=== PATIENT | male | born 1980 | race African-American/Black ===

== ENCOUNTER 2017-08-08 02:52 | Emergency (ER) | payer OTHER ==
[2017-08-08 03:07] VITALS: O2SAT 100
[2017-08-08] MEDS ORDERED: Rocephin 1000 MG INJ IM ONE (03:20)
[2017-08-08] MEDS ORDERED: MOTRIN 400 MG PO ONE (03:21)
[2017-08-08] MEDS ORDERED: CLEOCIN 150 MG CAPSULE PO ONE (03:21)
[2017-08-08] MEDS ORDERED: MOTRIN 400 MG ONE (03:24)
[2017-08-08] MEDS ORDERED: CLEOCIN 150 MG CAPSULE ONE (03:24)
[2017-08-08] MEDS ORDERED: Rocephin 1000 MG INJ ONE (03:25)
[2017-08-08] MEDS ORDERED: XYLOCAINE 1% HCL 20 ML MDV ONE (03:26)
--- NOTE | 2017-08-08 03:28 | ERPHSYRPT ---
- History of Present Illness Time Seen by Provider: 08/08/17 03:15 Source: patient Exam Limitations: no limitations Patient Subjective Stated Complaint: pt states he has redness to his rt arm and hand. states he had eczema on his rt hand and tonight has redness extending up his arm. Triage Nursing Assessment: pt alert and oriented, answers questions approp. pt ambultory with steady gait noted. respirations nonlabored with lungs cta. open areas noted to rt hand with swelling surrounding. redness noted to forearm, radial pulse and sensation wnl. Physician History: ABOUT 24 HOURS AGO PT STARTED WITH PAIN IN THE LATERAL ASPECT OF THE RIGHT HAND WHICH STARTED TO SWELL TRAVELING UP THE VOLAR ASPECT OF THE FOREARM TO MID FOREARM. 5 HOURS AGO THE AREA STARTED WITH REDNESS. PT DENIES FEVER, CHILLS, NAUSEA, VOMITING, CHEST PAIN. Allergies/Adverse Reactions: No Known Drug Allergies Allergy (Verified 08/08/17 03:10) Home Medications: Gabapentin mg PO BID 08/08/17 [History] Hx Tetanus, Diphtheria Vaccination/Date Given: Yes (2014) Hx Influenza Vaccination/Date Given: No Hx Pneumococcal Vaccination/Date Given: No Immunizations Up to Date: Yes - Review of Systems Constitutional: No Fever, No Chills Cardiac: No Chest Pain Abdominal/Gastrointestinal: No Nausea Musculoskeletal: Other (SWELLING AND REDNESS OF THE LATERAL ASPECT OF THE RIGHT HAND AND DISTAL VOLAR ASPECT OF THE LEFT FOREARM) Skin: Rash All Other Systems: Reviewed and Negative - Past Medical History Pertinent Past Medical History: No Neurological History: Other Musculoskeletal History: Osteoarthritis Other Medical History: RLS - Past Surgical History Past Surgical History: Yes Gastrointestinal: Appendectomy - Social History Smoking Status: Current every day smoker How long have you smoked: 10yrs Exposure to second hand smoke: Yes Drug Use: none Patient Lives Alone: No - Nursing Vital Signs Nursing Vital Signs: Initial Vital Signs Temperature 98.0 F 08/08/17 02:55 Pulse Rate 87 08/08/17 02:55 Respiratory Rate 16 08/08/17 02:55 Blood Pressure 132/82 08/08/17 02:55 O2 Sat by Pulse Oximetry 100 08/08/17 02:55 Pain Scale Pain Intensity 1 - Physical Exam General Appearance: alert Eyes, Ears, Nose, Throat Exam: TMs normal, pharynx normal, moist mucous membranes Neck Exam: normal inspection Cardiovascular/Respiratory Exam: normal breath sounds, heart sounds normal Abdominal Exam: soft (B.S. NORMAL) Back Exam: normal range of motion Elbow/Forearm Exam: swelling (MILD EDEMA & ERYTHEMA OF THE DISTAL VOLAR ASPECT OF THE RIGHT FOREARM.) Hand Exam: swelling (MILD EDEMA & ERYTHEMA OF THE LATERAL ASPECT OF THE RIGHT HAND; FULL ROM, SENSATION AND CAPILLARY REFILL OF ALL DIGITS OF THE RIGHT HAND.) Neuro/Tendon Exam: normal sensation, normal motor functions, normal tendon functions Mental Status Exam: alert, cooperative SpO2 Interpretation: normal SpO2: 100 Oxygen Delivery: Room Air - Course Nursing assessment & vital signs reviewed: Yes Ordered Tests: Medication Summary Discontinued Medications Generic Name Dose Route Start Last Admin Trade Name Freq PRN Reason Stop Dose Admin Ceftriaxone Sodium 1,000 mg 08/08/17 03:20 Rocephin 1000 Mg Inj IM 08/08/17 03:21 STAT ONE Clindamycin HCl 300 mg 08/08/17 03:21 Cleocin 150 Mg Capsule PO 08/08/17 03:22 STAT ONE Ibuprofen 400 mg 08/08/17 03:21 Motrin 400 Mg PO 08/08/17 03:22 STAT ONE - Departure Time of Disposition: 03:42 Departure Disposition: Home Clinical Impression: MILD CELLULITIS OF THE RIGHT HAND/FOREARM Condition: Stable Critical Care Time: No Referrals: DOCTOR,NO FAMILY [Primary Care Provider] - Instructions: Cellulitis -- Adult Additional Instructions: FOLLOW UP WITH PRIVATE DOCTOR TOMORROW. ELEVATE RIGHT HAND/FOREARM ABOVE HEART LEVEL FOR 24 HOURS. Prescriptions: Naproxen [Naprosyn] 500 mg PO Q12H PRN PRN #20 tablet PRN Reason: Pain Clindamycin HCl 300 mg PO Q6H #40 capsule
[2017-08-08 03:57] VITALS: BP 127/90; PULSE 90
== END 2017-08-08 03:57 | disposition home or self-care (01) ==
LOC: ED 02:52
DX: L03.113 Cellulitis of right upper limb (principal)
CPT/HCPCS: 96372; 99284; J0696; A9270-GY

== ENCOUNTER 2019-06-10 19:39 | Emergency (ER) | payer OTHER ==
--- NOTE | 2019-06-10 22:09 | ERPHSYRPT ---
- History of Present Illness Time Seen by Provider: 06/10/19 22:02 Historian: patient Exam Limitations: no limitations Patient Subjective Stated Complaint: patient reports he has an umbilical hernia that has caused him severe pain 3 times this week. when its bad, its really bad , I get sick and pain is at least 8/10. at present time, patient denies pain. reports last Bm an 1.5 hr ago. pt states I just wanted to get it checked out to see what I need to do. Triage Nursing Assessment: A/O, speech clear, denies pain or disc at this time. noted umbilical hernia. + BS. denies N/V at this time. 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 Timing/Duration: week(s) (Off and on) Activities at Onset: none (nothing seems to cause the umbilical bulge) Quality: cramping, sharpness, stabbing Abdominal Pain Onset Location: periumbilical Pain Radiation: periumbilical Allergies/Adverse Reactions: No Known Drug Allergies Allergy (Verified 08/08/17 03:10) Hx Tetanus, Diphtheria Vaccination/Date Given: Yes Hx Influenza Vaccination/Date Given: No Hx Pneumococcal Vaccination/Date Given: No Immunizations Up to Date: Yes - Review of Systems Constitutional: No Symptoms Respiratory: No Symptoms Cardiac: No Symptoms Abdominal/Gastrointestinal: No Symptoms (at present) Skin: No Symptoms (No periumbilical erythema) All Other Systems: Reviewed and Negative - Past Medical History Pertinent Past Medical History: No Neurological History: No Pertinent History ENT History: No Pertinent History Cardiac History: No Pertinent History Respiratory History: No Pertinent History Endocrine Medical History: No Pertinent History Musculoskeletal History: Osteoarthritis GI Medical History: No Pertinent History History: No Pertinent History Psycho-Social History: No Pertinent History Male Reproductive Disorders: No Pertinent History Other Medical History: heart murmur - Past Surgical History Past Surgical History: Yes Neuro Surgical History: No Pertinent History Cardiac: No Pertinent History Respiratory: No Pertinent History Gastrointestinal: Appendectomy Genitourinary: No Pertinent History Musculoskeletal: No Pertinent History Male Surgical History: No Pertinent History - Social History Smoking Status: Current every day smoker How long have you smoked: 10yrs Exposure to second hand smoke: Yes Drug Use: none Patient Lives Alone: No - Nursing Vital Signs Nursing Vital Signs: Initial Vital Signs Temperature 98.1 F 06/10/19 20:30 Pulse Rate 83 06/10/19 20:30 Respiratory Rate 16 06/10/19 20:30 Blood Pressure 141/84 06/10/19 20:30 O2 Sat by Pulse Oximetry 99 06/10/19 20:30 Pain Scale Pain Intensity 0 - Physical Exam General Appearance: no apparent distress (Patient advised that it is not painful or present at this time but wanted to have it checked out), alert Eye Exam: PERRL/EOMI Ears, Nose, Throat Exam: normal ENT inspection Neck Exam: normal inspection Respiratory Exam: normal breath sounds, lungs clear, airway intact, No chest tenderness Cardiovascular Exam: regular rate/rhythm, normal heart sounds Gastrointestinal/Abdomen Exam: soft, normal bowel sounds, No tenderness, No ecchymosis, No pulsatile mass, No rebound, No hernia (not demonstrated with stress exam) Extremity Exam: normal inspection, normal range of motion Neurologic Exam: alert, oriented x 3, cooperative, normal mood/affect - Course Nursing assessment & vital signs reviewed: Yes - CT Exams Abdomen CT Interpretation: Negative (No cute process noted; no umbilical hernia demonstrated) Ordered Tests: Active Orders 24 hr Category Date Time Status ABDOMEN WITHOUT CONTRAST [CT] Stat Exams 06/10/19 23:08 Taken CBC W DIFF Stat Lab 06/10/19 22:35 Completed CMP Stat Lab 06/10/19 22:35 Completed Lab/Rad Data: Laboratory Result Diagrams 06/10/19 22:35 06/10/19 22:35 Laboratory Results 06/10/19 06/10/19 Range/Units 22:35 22:35 WBC 7.8 (4.0-10.5) K/mm3 RBC 5.28 (4.1-5.6) M/mm3 Hgb 12.6 (12.5-18.0) gm/dl Hct 38.0 L (42-50) % MCV 72.0 L (78-100) fl MCH 23.9 L (26-32) pg MCHC 33.2 (32-36) g/dl RDW 16.0 H (11.5-14.0) % Plt Count 268 (150-450) K/mm3 MPV 10.5 H (6-9.5) fl Gran % 36.5 (36.0-66.0) % Eos # (Auto) 0.39 (0-0.5) Absolute Lymphs (auto) 3.78 (1.0-4.6) Absolute Monos (auto) 0.76 (0.0-1.3) Lymphocytes % 48.2 H (24.0-44.0) % Monocytes % 9.7 (0.0-12.0) % Eosinophils % 5.0 (0.00-5.0) % Basophils % 0.6 (0.0-0.4) % Absolute Granulocytes 2.86 (1.4-6.9) Basophils # 0.05 (0-0.4) Sodium 143 (137-145) mmol/L Potassium 4.0 (3.5-5.1) mmol/L Chloride 110 H (98-107) mmol/L Carbon Dioxide 27 (22-30) mmol/L Anion Gap 9.7 (5-15) MEQ/L BUN 19 (9-20) mg/dL Creatinine 1.04 (0.66-1.25) mg/dL Estimated GFR > 60.0 ML/MIN Glucose 90 (74-106) mg/dL Calcium 9.2 (8.4-10.2) mg/dL Total Bilirubin 0.30 (0.2-1.3) mg/dL AST 28 (17-59) U/L ALT 21 (0-50) U/L Alkaline Phosphatase 72 (38-126) U/L Serum Total Protein 7.1 (6.3-8.2) g/dL Albumin 4.1 (3.5-5.0) g/dL - Departure Departure Disposition: Home Clinical Impression: Umbilical hernia Qualifiers: Obstruction and gangrene presence: without obstruction or gangrene Qualified Code(s): K42.9 - Umbilical hernia without obstruction or gangrene Condition: Stable Critical Care Time: No Referrals: DOCTOR,NO FAMILY [Primary Care Provider] - Instructions: Acute Abdomen (Belly Pain), Adult (DC), Umbilical Hernia, Adult Additional Instructions: Call [facility] office for surgical consult appointment; bring CD of the CT scan with you.
[2019-06-10 22:44] LABS: BASOPHIL % 0.6 % (0.0-0.4); Basophil (Absolute #) 0.05 (0-0.4); Eosinophil (Absolute #) 0.39 (0-0.5); Granulocyte Absolute (ANC) 2.86 (1.4-6.9); Granulocytes % 36.5 % (36.0-66.0); Hemoglobin 12.6 gm/dl (12.5-18.0); Lymphocyte (Absolute #) 3.78 (1.0-4.6); Lymphocytes % 48.2 % (24.0-44.0); Mean Corpuscular Hemoglobin 23.9 pg (26-32); Mean Corpuscular Hgb Concent. 33.2 g/dl (32-36); Mean Platelet Volume 10.5 fl (6-9.5); Monocyte (Absolute #) 0.76 (0.0-1.3); Monocytes % 9.7 % (0.0-12.0); Platelet Count 268 K/mm3 (150-450); Red Blood Count 5.28 M/mm3 (4.1-5.6); White Blood Count 7.8 K/mm3 (4.0-10.5)
[2019-06-10 22:55] LABS: ALBUMIN 4.1 g/dL (3.5-5.0); ALKALINE PHOSPHATASE 72 U/L (38-126); ANION GAP 9.7 MEQ/L (5-15); BLOOD UREA NITROGEN 19 mg/dL (9-20); CHLORIDE 110 mmol/L (98-107); Calcium 9.2 mg/dL (8.4-10.2); Carbon Dioxide 27 mmol/L (22-30); Creatinine 1 1.04 mg/dL (0.66-1.25); Glucose 90 mg/dL (74-106); SGOT/AST 28 U/L (17-59); SGPT/ALT 21 U/L (0-50); SODIUM 143 mmol/L (137-145); Total Protein 7.1 g/dL (6.3-8.2)
[2019-06-10 23:05] VITALS: O2SAT 98
[2019-06-11 00:32] VITALS: BP 145/91; PULSE 65
--- NOTE | 2019-06-11 08:56 | XRAY ---
Indication: Periumbilical pain 1.5 weeks.. Multiple contiguous axial images obtained through the abdomen only without contrast as ordered. Comparison: None. Lung bases are clear. Heart is not enlarged. Small hiatal hernia. Stomach is distended with food/fluid. Noncontrasted stomach and visualized bowel loops appear nonobstructed. Patient reports appendectomy. Visualized colon demonstrates mild diffuse scattered colonic fecal debris. No free fluid/air. Remaining liver, gallbladder, pancreas, spleen, adrenal glands, kidneys, proximal ureters, and aorta appear unremarkable for noncontrast exam. Osseous structures intact with moderate lower lumbar degenerative changes. No ventral hernia. Impression: 1. Fecal stasis without obstruction. 2. Small hiatal hernia. 3. Remaining CT abdomen without contrast exam is negative. Comment: Preliminary interpretation was made by [facility]. No critical discrepancy. CT DI 16.58
== END 2019-06-11 00:31 | disposition home or self-care (01) ==
LOC: ED 19:39
DX: K42.9 Umbilical hernia without obstruction or gangrene (principal)
CPT/HCPCS: 36415; 74150; 80053; 85025; 99284